=== PATIENT | male | born 1945 | race Caucasian/White ===

== ENCOUNTER 2020-06-23 08:04 | Outpatient (REF) | payer MEDICARE, SELFPAY ==
[2020-06-23 09:03] LABS: MANUAL DIFF FLAG NO
[2020-06-23 09:07] LABS: Basophils Percent Auto 0.3 % (0-2); Eosinophils Absolute Auto 0.2 X10*3/uL (0.0-0.4); Eosinophils Percent Auto 2.7 % (0-4); Hematocrit 34.8 % (42-52); Hemoglobin 11.1 g/dl (14.0-18.0); Imm Gran Abs Auto 0.03 X10*3/uL (0.00-0.03); Imm Gran Pct Auto 0.5 % (0.0-0.4); Lymphocytes Absolute Auto 1.6 X10*3/uL (1.2-4.9); Lymphocytes Percent Auto 26.9 % (20-40); Mean Corpuscular HGB Conc 31.9 g/dl (31.0-36.0); Mean Corpuscular Hemoglobin 29.9 pg (27.0-33.0); Mean Corpuscular Volume 93.8 fL (80-98); Mean Platelet Volume 9.7 fL (9.4-12.4); Monocytes Absolute Auto 0.6 X10*3/uL (0.1-1.2); Monocytes Percent Auto 10.1 % (2-11); Neutrophils Absolute Auto 3.6 X10*3/uL (2.0-8.3); Neutrophils Percent Auto 59.5 % (45-73); Platelet Count 183 X10*3/uL (160-400); Red Blood Count 3.71 X10*6/uL (4.60-5.80); Red Cell Distribution Width 13.4 % (11.0-16.0)
[2020-06-23 09:25] LABS: Estimated Average Glucose 146 mg/dL; Hemoglobin A1c % 6.7 %
[2020-06-23 09:42] LABS: Alanine Aminotransferase 19 U/L (0-40); Alkaline Phosphatase 44 U/L (39-117); Anion Gap 10 (12-20); Aspartate Amino Transferase 19 U/L (5-37); Bilirubin Direct 0.5 mg/dL (0.0-0.5); Bilirubin Total 1.2 mg/dL (0.0-1.0); Blood Urea Nitrogen 27 mg/dL (9-16); Calcium 8.5 mg/dL (8.4-10.2); Carbon Dioxide 29 mmol/L (22-29); Chloride 104 mmol/L (96-108); Cholesterol 130 mg/dL; Estimated Glomerular Filt Rate > 60; Glucose Fasting 51 mg/dL (60-99); HDL Cholesterol 57 mg/dL; LDL Cholesterol Calculated 64 mg/dl; Potassium 4.2 mmol/l (3.3-5.1); Sodium 139 mmol/L (135-145); Total Protein 6.4 g/dL (6.5-8.0); Triglycerides 49 mg/dL
[2020-06-23 09:50] LABS: B Type Natriuretic Peptide 343 pg/mL (<100)
== END 2020-06-23 08:05 | disposition home or self-care (01) ==
LOC: HO.LAB 08:04
PROVIDERS: Referring Provider Internal Medicine Cardiovascular Disease
DX: I10 Essential (primary) hypertension (principal); E78.5 Hyperlipidemia, unspecified; E11.9 Type 2 diabetes mellitus without complications
CPT/HCPCS: 36415; 80053; 80061; 80076; 83036; 83880; 85025

== ENCOUNTER 2020-12-18 07:36 | Outpatient (REF) | payer MEDICARE, SELFPAY ==
[2020-12-18 08:46] LABS: PSA,Total (Free>4and<10) 2.09 ng/mL (0.00-4.00)
== END 2020-12-18 07:37 | disposition home or self-care (01) ==
LOC: HO.LAB 07:36
PROVIDERS: PCP Internal Medicine; Visit Provider Physician Assistant Surgical
DX: R97.20 Elevated prostate specific antigen [PSA] (principal); Z12.5 Encounter for screening for malignant neoplasm of prostate
CPT/HCPCS: 36415; 84153

== ENCOUNTER 2021-03-11 07:36 | Outpatient (REF) | payer MEDICARE, SELFPAY ==
[2021-03-11 08:24] LABS: Glucose Urine UA NEG (NEG); Leukocyte Esterase Urine NEG (NEG); MANUAL DIFF FLAG NO; Nitrite Urine NEG (NEG); Urine Blood NEG (NEG); Urine Ketones NEG (NEG); Urine Protein NEG (NEG-TRACE)
[2021-03-11 08:26] LABS: Appearance Urine CLEAR; Color Urine YELLOW
[2021-03-11 08:38] LABS: Basophils Percent Auto 0.3 % (0-2); Eosinophils Absolute Auto 0.1 X10*3/uL (0.0-0.4); Eosinophils Percent Auto 2.3 % (0-4); Hematocrit 33.6 % (42-52); Hemoglobin 10.9 g/dl (14.0-18.0); Imm Gran Abs Auto 0.03 X10*3/uL (0.00-0.03); Imm Gran Pct Auto 0.5 % (0.0-0.4); Lymphocytes Absolute Auto 1.3 X10*3/uL (1.2-4.9); Lymphocytes Percent Auto 20.7 % (20-40); Mean Corpuscular HGB Conc 32.4 g/dl (31.0-36.0); Mean Corpuscular Hemoglobin 29.6 pg (27.0-33.0); Mean Corpuscular Volume 91.3 fL (80-98); Mean Platelet Volume 9.5 fL (9.4-12.4); Monocytes Absolute Auto 0.6 X10*3/uL (0.1-1.2); Neutrophils Absolute Auto 4.1 X10*3/uL (2.0-8.3); Neutrophils Percent Auto 66.2 % (45-73); Platelet Count 202 X10*3/uL (160-400); Red Blood Count 3.68 X10*6/uL (4.60-5.80); Red Cell Distribution Width 14.3 % (11.0-16.0); White Blood Count 6.2 X10*3/uL (4.8-10.8)
[2021-03-11 08:40] LABS: Estimated Average Glucose 192 mg/dL; Hemoglobin A1c % 8.3 %
[2021-03-11 08:50] LABS: Alanine Aminotransferase 22 U/L (0-40); Albumin Level 3.8 g/dL (3.5-5.0); Alkaline Phosphatase 45 U/L (39-117); Anion Gap 12 (12-20); Aspartate Amino Transferase 21 U/L (5-37); Bilirubin Total 1.1 mg/dL (0.0-1.0); Blood Urea Nitrogen 20 mg/dL (9-16); Calcium 8.9 mg/dL (8.4-10.2); Carbon Dioxide 26 mmol/L (22-29); Chloride 106 mmol/L (96-108); Cholesterol 105 mg/dL; Estimated Glomerular Filt Rate > 60; Glucose Random 97 mg/dL (60-115); HDL Cholesterol 55 mg/dL; LDL Cholesterol Calculated 42 mg/dl; Potassium 4.5 mmol/L (3.3-5.1); Sodium 139 mmol/L (135-145); Total Protein 6.1 g/dL (6.5-8.0); Triglycerides 43 mg/dL
== END 2021-03-11 07:37 | disposition home or self-care (01) ==
LOC: HO.LAB 07:36
PROVIDERS: PCP Internal Medicine; Visit Provider Internal Medicine
DX: I10 Essential (primary) hypertension (principal)
CPT/HCPCS: 36415; 80053; 80061; 81003; 83036; 85025

== ENCOUNTER 2021-05-27 12:22 | Emergency (ER) | payer MEDICARE, SELFPAY ==
--- NOTE | ~2021-05-27 | XR_ITS ---
EXAMINATION: XR CHEST CLINICAL INFORMATION: ET tube placement COMPARISON: Previous chest x-ray from July 2016 TECHNIQUE: Frontal view of the chest was obtained. FINDINGS: There is an endotracheal tube. The gauri is not well visualized. The endotracheal tube appears low and may be in the right mainstem bronchus. There is a nasogastric tube that projects over the esophagus. The tip is not seen. The lung volumes are low. The cardiac silhouette is enlarged. There is increased hazy opacity seen in both lungs, right greater than left. There may be a small right pleural effusion. There is no pneumothorax. No acute bone abnormality is seen. XR/XR chest 1V IMPRESSION: Endotracheal tube appears low and may be in the right mainstem bronchus. Repeat imaging following tube reposition recommended. Nasogastric tube projects over the esophagus. The tip is not seen. Enlarged cardiac silhouette. Bilateral hazy lung opacities, right greater than left and small right pleural effusion.
[2021-05-27 12:37] VITALS: BP 154/78; BP 160/87; PULSE 130; PULSE 74; RESP 12; TEMP 35.4; O2SAT 99; BMI 34.4
--- NOTE | 2021-05-27 12:38 | ECG_ITS ---
Test Reason : CARDIAC ARREST Blood Pressure : / mmHG Vent. Rate : 094 BPM Atrial Rate : 094 BPM P-R Int : 256 ms QRS Dur : 152 ms QT Int : 390 ms P-R-T Axes : 000 105 -63 degrees QTc Int : 487 ms Sinus rhythm with 1st degree A-V block with Premature supraventricular complexes Rightward axis Non-specific intra-ventricular conduction block Abnormal ECG When compared with ECG of 21-AUG-2003 08:57, Significant changes have occurred Referred By: Erica Coelho Electronically Signed By:LUEP CONDON
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
[2021-05-27 12:45] LABS: Glucose, Whole Blood 401 mg/dL (60-115)
--- NOTE | 2021-05-27 12:52 | PC.NURSE ---
[id number] CALL PLACED TO [phone] STAT PAGER NUMBER [phone] @ DR HA GARCIA
--- NOTE | 2021-05-27 12:52 | PC.NURSE ---
contacted and requested Vandana Justice from action for STEMI stand by @[phone]
--- NOTE | 2021-05-27 12:54 | PC.NURSE ---
@1253PM RETURN CALL FROM [facility] [employer] DR YOLY BONNER TAKES OVER CALL RIGHT AWAY
[2021-05-27] MEDS: Furosemide 100 MG/10 ML VIAL 80 MG IVPUSH (13:05)
[2021-05-27] MEDS: Aspirin 300 MG SUPP.RECT PR (13:05)
[2021-05-27 13:07] VITALS: O2SAT 83
[2021-05-27 13:08] LABS: Hematocrit 40.1 % (42-52); Mean Corpuscular HGB Conc 29.9 g/dl (31.0-36.0); Mean Corpuscular Hemoglobin 30.3 pg (27.0-33.0); Mean Corpuscular Volume 101.3 fL (80-98); Mean Platelet Volume 10.3 fL (9.4-12.4); Platelet Count 171 X10*3/uL (160-400); Red Blood Count 3.96 X10*6/uL (4.60-5.80); White Blood Count 12.1 X10*3/uL (4.8-10.8)
[2021-05-27 13:10] LABS: Appearance Urine CLEAR; Color Urine YELLOW; Glucose Urine UA NEG (NEG); Leukocyte Esterase Urine NEG (NEG); Nitrite Urine NEG (NEG); UACC Culture Trigger NO; Urine Blood TRACE (NEG); Urine Ketones NEG (NEG); Urine Protein 1+ MG/DL (NEG-TRACE)
[2021-05-27 13:12] LABS: INTERNATIONAL NORM RATIO 1.1 (0.9-1.1)
[2021-05-27] MEDS: Clopidogrel Bisulfate 300 MG TABLET 600 MG PO (13:15)
[2021-05-27] MEDS: Pantoprazole Sodium 40 MG/10 ML VIAL 80 MG IVPUSH (13:15)
[2021-05-27] MEDS: Heparin Sodium,Porcine 5,000 UNIT/ML VIAL 4000 UNIT IVPUSH (13:15)
[2021-05-27] MEDS: Atorvastatin Calcium 80 MG TABLET OG-TUBE (13:15)
[2021-05-27 13:19] LABS: Partial Thromboplastin Time 71.9 SEC (24.1-38.0)
[2021-05-27 13:21] LABS: COVID-19 Test Negative (Negative)
[2021-05-27 13:22] LABS: Lipase 106 U/L (8-78); Magnesium 2.4 mg/dL (1.6-2.6)
[2021-05-27 13:27] LABS: ABG Refer to POC result
[2021-05-27 13:30] LABS: Band Neutrophils Percent 5 % (3-5); Lymphocytes Absolute Manual 5.1 X10*3/uL (0.6-4.8); Lymphocytes Percent Manual 42 % (20-40); Metamyelocytes Absolute 0.2 X10*3/uL; Metamyelocytes Percent 2 %; Monocytes Absolute Manual 0.6 X10*3/uL (0.0-1.2); Monocytes Percent Manual 5 % (2-11); Neutrophils Absolute Manual 6.2 X10*3/uL (2.2-7.9); Neutrophils Percent Manual 46 % (45-73)
[2021-05-27 13:30] LABS: ABG Base Excess -27.3 mmol/L; ABG HCO3 8 mmol/L (22-26); ABG pCO2 55 mmHg (32-45); ABG pCO2 TC 55 mmHg (32-45); ABG pH 6.75 (7.35-7.45); ABG pH TC 6.76 (7.35-7.45); ABG pO2 100 mmHg (83-108); ABG pO2 TC 99 (83-108)
[2021-05-27 13:31] LABS: WBC Urine 0-2 /HPF (0-4)
[2021-05-27 13:32] LABS: Mucus Urine TRACE /LPF
[2021-05-27 13:32] LABS: RBC Morphology NOTED
[2021-05-27 13:33] LABS: Acanthocytes 3+ (>5) /OIF; Macrocytosis 1+ (5-14) /OIF; Platelet Estimate NORMAL (NORMAL); Platelet Morphology Comment NORMAL; Polychromasia 1+ (0-2) /OIF
[2021-05-27 13:34] LABS: Alanine Aminotransferase 88 U/L (0-40); Albumin Level 3.1 g/dL (3.5-5.0); Alkaline Phosphatase 90 U/L (39-117); Anion Gap 28 (12-20); Aspartate Amino Transferase 106 U/L (5-37); Bilirubin Direct 0.5 mg/dL (0.0-0.5); Blood Urea Nitrogen 17 mg/dL (9-16); Calcium 9.4 mg/dL (8.4-10.2); Carbon Dioxide 6 mmol/L (22-29); Chloride 109 mmol/L (96-108); Creatinine Clr Calc Pharmacy 58.4; Estimated Glomerular Filt Rate 52; Glucose Random 441 mg/dL (60-115); Potassium 4.7 mmol/L (3.3-5.1); Sodium 138 mmol/L (135-145); Total Protein 5.1 g/dL (6.5-8.0); Troponin-I High Sensitivity 86.8 ng/L (<3.5-35.0)
[2021-05-27 13:35] LABS: Lactic Acid 15.1 mmol/L (0.5-2.0)
[2021-05-27 13:47] VITALS: PULSE 61; O2SAT 83
[2021-05-27 15:03] LABS: Reflex Lactate? Lactic Acid Added
== END 2021-05-27 14:42 | disposition short-term general hospital (02) ==
PROVIDERS: Emergency Provider Emergency Medicine; PCP Internal Medicine
DX: I46.9 Cardiac arrest, cause unspecified (principal); I21.11 ST elevation (STEMI) myocardial infarction involving right coronary artery; E11.9 Type 2 diabetes mellitus without complications; Z20.822 Contact with and (suspected) exposure to COVID-19
CPT/HCPCS: 31500; 36415; 51702; 71045; 80048; 80076; 81001; 82803; 82947; 83605; 83690; 83735; 84484; 85007; 85027; 85610; 85730; 87040; 87635; 93005; 94002; 94003; 96374; 96375; 99285; 99291; J0171; J0461; J1940